=== PATIENT | male | born 1950 | race Caucasian/White ===

== ENCOUNTER 2019-01-09 18:40 | Emergency (ER) | payer BC, MEDICARE ==
[~2019-01-09] VITALS: Ht 172.7 cm; Wt 113.4 kg
[~2019-01-09 18:40] MED LIST: ADVAIR 500-501 EACH INH; ADVIL200 M1 PO; ALBUTEROL2.5 MG/3 M INH; ATIVAN0.5 MG PO; BUPRENORPHINE HC8 MG SL; BYSTOLIC10 MG PO; CLONIDINE HCL0.1 MG PO; DULERA 100 MCG/13 GM INH; DULERA 200 MCG/13 GM INH; GABAPENTIN600 MG PO; LAMICTAL100 MG PO; LISINOPRIL40 MG PO; LORAZEPAM1 MG PO; MAG-AL LIQUID30 ML PO; MELADOX3 MG PO; NORVASC10 MG PO; PREDNISONE20 MG PO; PRILOSEC20 MG PO; TESTOSTERO200 MG/1 M IM; TYLENOL325 MG PO; VITAMIN D5000 UNIT PO; ZANTAC150 MG PO
--- OUTSIDE RECORDS SUMMARY | 2019-01-09 18:44 | XMS ---
PreManage Notification: JAMAAL MICHELE Security Society Editor Events No recent Security Events currently on file CRITERIA MET - [facility] CARE PROVIDERS Abrahan Trejo Current PHONE: Unknown Pat has no Care Guidelines for this patient. [facility] VISIT COUNT (12 MO.) 1 RACQUEL Bee TOTAL 1 NOTE: Visits indicate total known visits. ED/UCC VISIT TRACKING (12 MO.) 01/09/2019 18:[address] [facility] [address] [facility] TYPE: Emergency COMPLAINT: - SORE THROAT/WHEEZING INPATIENT VISIT TRACKING (12 MO.) 01/18/2018 09:40 [facility] Lala CHANG TYPE: Surgical Services DIAGNOSES: - right-sided sciatica (M54.41, G89.29) - Kyphoscoliosis (M41.9), Spondylolisthesis of lumbar region (M43.16), Acquired flat back syndrome (M40.30), Spinal stenosis, lumbar region, without neurogenic claudication (M48.06), Lumbar radiculopathy (M54.16), Chronic right-sided low back pain with - Arthrodesis status [id number]
[2019-01-09] MEDS ORDERED: VENTOLIN HFA18 GM INH (18:56)
[2019-01-09] MEDS ORDERED: HYDROCHLOROTHIA50 MG PO (18:56)
[2019-01-09] MEDS ORDERED: SYMBICORT 16010.2 GM INH (18:56)
[2019-01-09] MEDS ORDERED: LYRICA150 MG PO (18:58)
[2019-01-09] MEDS ORDERED: CANDESARTAN CILE4 MG PO (18:58)
[2019-01-09] MEDS ORDERED: POTASSIUM CHLO10 ME1 PO (18:58)
[2019-01-09] MEDS ORDERED: LAMOTRIGINE150 MG PO (18:58)
[2019-01-09] MEDS ORDERED: TAMSULOSIN HCL0.4 MG PO (18:58)
[2019-01-09] MEDS ORDERED: FOLTANX RF CAP1 EACH PO (19:01)
== END 2019-01-09 20:15 | disposition home or self-care (01) ==
LOC: ED 18:40
DX: K21.9 Gastro-esophageal reflux disease without esophagitis (principal); I10 Essential (primary) hypertension; F31.9 Bipolar disorder, unspecified; J45.909 Unspecified asthma, uncomplicated; Z87.891 Personal history of nicotine dependence; Z88.8 Allergy status to other drugs, medicaments and biological substances; Z88.0 Allergy status to penicillin; Z88.1 Allergy status to other antibiotic agents; Z79.899 Other long term (current) drug therapy
CPT/HCPCS: 94640; 99282

== ENCOUNTER 2019-01-26 12:45 | Emergency (ER) | payer BC ==
[~2019-01-26] VITALS: Ht 172.7 cm; Wt 113.4 kg
[~2019-01-26 12:45] MED LIST changes: +CANDESARTAN CILE4 MG PO; +FOLTANX RF CAP1 EACH PO; +HYDROCHLOROTHIA50 MG PO; +LAMOTRIGINE150 MG PO; +LYRICA150 MG PO; +POTASSIUM CHLO10 ME1 PO; +SYMBICORT 16010.2 GM INH; +TAMSULOSIN HCL0.4 MG PO; +VENTOLIN HFA18 GM INH
--- OUTSIDE RECORDS SUMMARY | 2019-01-26 12:48 | XMS ---
PreManage Notification: JAMAAL MICHELE Security Herpetologist Events No recent Security Events currently on file CRITERIA MET - [facility] - Has Care Guidelines - PDMP - [facility] - 2 Visits in 30 Days CARE PROVIDERS JODIE ANTON Hospitalist 01/10/2019-Current PHONE: Unknown Abrahan Trejo MD PHONE: Unknown Pat has no Care Guidelines for this patient. Care History Medical/Surgical 01/10/2019 [facility] - Patient is currently established with [facility]. If patient is seen in the ED during business hours. Please contact CHWs at [facility]. Care Recommendation: This patient has had 5 or more Emergency Department visits in the last 12 months.\T\nbsp; Patient requires education on the scope and purpose of the ED as an acute care provider not a Primary Care Provider and should not be utilized for chronic conditions.\T\nbsp; These are guidelines and the provider should exercise clinical judgment when providing care. E.D. VISIT COUNT (12 MO.) [address] [facility] TOTAL 2 NOTE: Visits indicate total known visits. 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
[2019-01-26] MEDS ORDERED: IBUPROFEN400 MG PO (13:03)
[2019-01-26] MEDS ORDERED: PROTONIX40 MG PO (13:04)
[2019-01-26] MEDS ORDERED: VITAMIN D310000 UNI1 PO (13:04)
== END 2019-01-26 15:58 | disposition short-term general hospital (02) ==
LOC: ED 12:45
DX: R06.00 Dyspnea, unspecified (principal); R09.02 Hypoxemia; I10 Essential (primary) hypertension; J45.909 Unspecified asthma, uncomplicated; F31.9 Bipolar disorder, unspecified; Z87.891 Personal history of nicotine dependence; Z90.49 Acquired absence of other specified parts of digestive tract; Z88.1 Allergy status to other antibiotic agents; Z88.8 Allergy status to other drugs, medicaments and biological substances; Z88.2 Allergy status to sulfonamides; Z88.4 Allergy status to anesthetic agent; Z79.899 Other long term (current) drug therapy
CPT/HCPCS: 71045; 80053; 83880; 85025; 94640; 94761; 96374; 99285-25; J2930

== ENCOUNTER 2019-02-22 06:01 | Emergency (ER) | payer BC ==
[~2019-02-22] VITALS: Ht 172.7 cm; Wt 113.4 kg
[~2019-02-22 06:01] MED LIST changes: +IBUPROFEN400 MG PO; +PROTONIX40 MG PO; +VITAMIN D310000 UNI1 PO
--- OUTSIDE RECORDS SUMMARY | 2019-02-22 06:04 | XMS ---
PreManage Notification: JAMAAL MICHELE Security Radiation Control Health Physicist Events No recent Security Events currently on file CRITERIA MET - [facility] - Has Care Guidelines - PDMP - [facility] - 2 Visits in 30 Days CARE PROVIDERS JODIE ANTON Hospitalist 01/10/2019-Current PHONE: Unknown Abrahan Trejo MD PHONE: Unknown Pat has no Care Guidelines for this patient. Care History Medical/Surgical 01/10/2019 [facility] - Patient is currently established with [facility]. If patient is seen in the ED during business hours. Please contact CHWs at [facility]. Care Recommendation: This patient has had 5 [...] providing care. E.D. VISIT COUNT (12 MO.) 1 [facility] 3 RACQUEL Bee TOTAL 4 NOTE: Visits indicate total known visits. ED/UCC VISIT TRACKING (12 MO.) 02/22/2019 06:01 [facility] [place] TYPE: Emergency COMPLAINT: - TROUBLE BREATHING 01/26/2019 17:32 [facility] TYPE: Emergency DIAGNOSES: - Shortness of Breath 01/26/2019 12:46 [facility] [place] TYPE: Emergency COMPLAINT: - SOB DIAGNOSES: - Allergy status to anesthetic agent status - Dyspnea, unspecified - Allergy status to other drugs, medicaments and biological substances status - Allergy status to sulfonamides status - Shortness of breath - Hypoxemia - Other care home (current) drug therapy - Bipolar disorder, unspecified - Allergy status to other antibiotic agents status - Unspecified asthma, uncomplicated - Acquired absence of other specified parts of digestive tract - Personal history of nicotine dependence - Essential (primary) hypertension 01/09/2019 18:41 [facility] [place] TYPE: Emergency COMPLAINT: - SORE THROAT/WHEEZING DIAGNOSES: - Unspecified asthma, uncomplicated - Shortness of breath - Allergy status to other antibiotic agents status - Other care home (current) drug therapy - Gastro-esophageal reflux disease without esophagitis - Personal history of nicotine dependence - Allergy status to other drugs, medicaments and biological substances status - Allergy status to penicillin - Bipolar disorder, unspecified - Essential (primary) hypertension INPATIENT VISIT TRACKING (12 MO.) 01/26/2019 17:32 [facility] DIAGNOSES: - Shortness of Breath - Moderate persistent asthma with (acute) exacerbation - Chronic obstructive pulmonary disease with (acute) exacerbation [id number]
[2019-02-22] MEDS ORDERED: PREDNISONE10 MG PO (09:49)
[2019-02-22] MEDS ORDERED: ALBUTEROL2.5 MG/3 M INH (09:49)
--- NOTE | 2019-02-23 07:57 | EKG ---
[facility] [address] [facility] [place] [address] Signed Normal sinus rhythm Normal ECG No previous ECGs available Confirmed by SHANICE BAUMANN MD ([id number]) on 02/23/2019 7:57:52 AM Electronically Signed By: SHANICE BAUMANN MD 02/23/19 0757 PATIENT NAME: JAMAAL MICHELE MARIAA Electrocardiogram DATE OF : 52 PHYSICIAN: SHANICE BAUMANN MD REPORT #: [id number] REPORT IS CONFIDENTIAL AND NOT TO BE RELEASED WITHOUT AUTHORIZATION
== END 2019-02-22 10:06 | disposition home or self-care (01) ==
LOC: ED 06:01
DX: J45.901 Unspecified asthma with (acute) exacerbation (principal); I10 Essential (primary) hypertension; F31.9 Bipolar disorder, unspecified; Z87.891 Personal history of nicotine dependence; Z88.8 Allergy status to other drugs, medicaments and biological substances; Z88.0 Allergy status to penicillin; Z88.1 Allergy status to other antibiotic agents; Z88.2 Allergy status to sulfonamides; Z79.899 Other long term (current) drug therapy
CPT/HCPCS: 71045; 80053; 83735; 83880; 84484; 85025; 93005; 93010; 94640; 96374; 99285-25; J2930

== ENCOUNTER 2019-05-05 12:28 | Emergency (ER) | payer BC ==
[~2019-05-05] VITALS: Ht 172.7 cm; Wt 114.2 kg
[~2019-05-05 12:28] MED LIST changes: +DOXAZOSIN MESYLA1 MG PO; +FUROSEMIDE20 MG PO; +IPRAT-ALBUT 0.5-3 ML INH; +OMEPRAZOLE20 MG PO; +PREDNISONE10 MG PO; +S2 RACEPINEPHR1 EACH NEB; +SUCRALFATE1 GM PO
--- OUTSIDE RECORDS SUMMARY | 2019-05-05 12:30 | XMS ---
PreManage Notification: JAMAAL MICHELE Security Linoleum Mechanic Events No recent Security Events currently on file CRITERIA MET - 6 ED Visits in 6 Months - [facility] - Has Care Guidelines - PDMP - [facility] - 2 Visits in 30 Days CARE PROVIDERS JODIE ANTON Internal Medicine 01/10/2019-Current PHONE: Unknown Abrahan Trejo [place] PHONE: Unknown Pat has no Care Guidelines for this patient. Care History Medical/Surgical 01/10/2019 [facility] - Patient is currently established with [facility]. If patient is seen in the ED during business hours. Please contact CHWs at [facility]. Care Recommendation: This patient has had 5 [...] care. E.D. VISIT COUNT (12 MO.) 1 [place] [address] RACQUEL Bee TOTAL 8 NOTE: Visits indicate total known visits. ED/UCC VISIT TRACKING (12 MO.) 05/05/2019 12:29 [facility] [place] TYPE: Emergency COMPLAINT: - SOB 04/13/2019 14:40 [facility] [place] TYPE: Emergency COMPLAINT: - SOB DIAGNOSES: - Allergy status to other antibiotic agents status - Dyspnea, unspecified - Personal history of nicotine dependence - Allergy status to sulfonamides status - Allergy status to other drugs, medicaments and biological substances status - Shortness of breath - Hypoxemia - Essential (primary) hypertension - Allergy status to anesthetic agent status - Allergy status to penicillin 04/10/2019 10:04 [facility] [place] TYPE: Emergency COMPLAINT: - TROUBLE BREATHING DIAGNOSES: - Unspecified asthma, uncomplicated - Bipolar disorder, unspecified - Personal history of nicotine dependence - Other longterm (current) drug therapy - Allergy status to anesthetic agent status - Allergy status to other drugs, medicaments and biological substances status - Allergy status to penicillin - Shortness of breath - Allergy status to sulfonamides status - Chronic obstructive pulmonary disease with (acute) exacerbation - Allergy status to other antibiotic agents status - Essential (primary) hypertension 03/19/2019 18:35 [facility] [place] TYPE: Emergency COMPLAINT: - BREATHING ISSUES 02/22/2019 06:01 [facility] [place] TYPE: Emergency COMPLAINT: - TROUBLE BREATHING DIAGNOSES: - Unspecified asthma with (acute) exacerbation - Allergy status to penicillin - Other ad terminal makeup operator (current) drug therapy - Allergy status to sulfonamides status - Allergy status to other drugs, medicaments and biological substances status - Personal history of nicotine dependence - Allergy status to other antibiotic agents status - Essential (primary) hypertension - Shortness of breath - Bipolar disorder, unspecified 01/26/2019 17:32 [facility] TYPE: Emergency DIAGNOSES: - Shortness of Breath 01/26/2019 12:46 [facility] TYPE: Emergency COMPLAINT: - SOB DIAGNOSES: - Allergy status to anesthetic agent status - Dyspnea, unspecified - Allergy status to other drugs, medicaments and biological substances status - Allergy status to sulfonamides status - Shortness of breath - Hypoxemia - Other longterm (current) drug therapy - Bipolar disorder, unspecified [...] to other antibiotic agents status - Other ad terminal makeup operator (current) drug therapy - Gastro-esophageal reflux disease without esophagitis - Personal history of nicotine dependence - Allergy status to other drugs, medicaments and biological substances status - Allergy status to penicillin - Bipolar disorder, unspecified - Essential (primary) hypertension INPATIENT VISIT TRACKING (12 MO.) 04/13/2019 21:03 [facility] TYPE: General Medicine DIAGNOSES: - Severe persistent asthma with (acute) exacerbation - Acute Respiratory Failure 03/19/2019 18:36 RACQUEL Oswald TYPE: Observation COMPLAINT: - REFLUX LARINGITIS W/ LARINGOSPASMS DIAGNOSES: - Personal history of nicotine dependence - Chronic pain syndrome - nursing home (current) use of inhaled steroids - Unspecified asthma, uncomplicated - Benign prostatic hyperplasia without lower urinary tract symptoms - Other ad terminal makeup operator (current) drug therapy - Bipolar disorder, unspecified - nursing home (current) use of systemic steroids - Allergy status to other drugs, medicaments and biological substances status - Obstructive sleep apnea (adult) (pediatric) - Acute laryngitis - Shortness of breath - Essential (primary) hypertension - Edema, unspecified - Allergy status to other antibiotic agents status - Allergy status to sulfonamides status - Gastro-esophageal reflux disease without esophagitis - Allergy status to anesthetic agent status 01/26/2019 17:32 [facility] Lala CHANG TYPE: General Medicine DIAGNOSES: - Shortness of Breath - Moderate persistent asthma with (acute) exacerbation - Chronic obstructive pulmonary disease with (acute) exacerbation [id number]
[2019-05-05] MEDS ORDERED: SPIRIVA18 MCG INH (12:38)
[2019-05-05] MEDS ORDERED: PREDNISONE20 MG PO (15:01)
== END 2019-05-05 15:15 | disposition home or self-care (01) ==
LOC: ED 12:28
DX: J44.1 Chronic obstructive pulmonary disease with (acute) exacerbation (principal); I10 Essential (primary) hypertension; F31.9 Bipolar disorder, unspecified; J45.909 Unspecified asthma, uncomplicated; Z87.891 Personal history of nicotine dependence; Z88.0 Allergy status to penicillin; Z88.1 Allergy status to other antibiotic agents; Z88.2 Allergy status to sulfonamides; Z79.899 Other long term (current) drug therapy
CPT/HCPCS: 71045; 80053; 83880; 84484; 85025; 94640; 96374; 99285-25; J2930

== ENCOUNTER 2020-09-12 15:15 | Emergency (ER) | payer BC ==
[~2020-09-12] VITALS: Ht 172.7 cm; Wt 111.1 kg
[~2020-09-12 15:15] MED LIST changes: +SPIRIVA18 MCG INH
--- OUTSIDE RECORDS SUMMARY | 2020-09-12 15:18 | XMS ---
PreManage Notification: JAMAAL MICHELE Security Medical Officer Events No recent Security Events currently on file CRITERIA MET - [facility] CARE PROVIDERS JODIE ANTON Internal Medicine 01/10/2019-Current PHONE: Unknown Pat has no Care Guidelines for this patient. Care History Medical/Surgical 01/10/2019 [facility] - Patient is currently established with [facility]. If patient is seen in the ED during business hours. Please contact CHWs at [facility]. Care Recommendation: This patient has [...] care. E.D. VISIT COUNT (12 MO.) 1 [facility] TOTAL 1 NOTE: Visits indicate total known visits. ED/UCC VISIT TRACKING (12 MO.) 09/12/2020 15:15 [facility] [place] TYPE: Emergency COMPLAINT: - SOB, LEG PAIN/SWELLING INPATIENT VISIT TRACKING (12 MO.) No inpatient visits to display in this time frame [id number]
[2020-09-12] MEDS ORDERED: FUROSEMIDE40 MG PO (15:42)
[2020-09-12] MEDS ORDERED: KLOR-CON 1010 MEQ PO (15:43)
[2020-09-12] MEDS ORDERED: PREDNISONE5 MG (15:43)
[2020-09-12] MEDS ORDERED: AZASAN100 MG PO (15:50)
--- NOTE | 2020-09-12 19:30 | EKG ---
[facility] [address] [facility] [place], [place] [address] Signed Normal sinus rhythm Normal ECG When compared with ECG of 13-APR-2019 14:54, No significant change was found Confirmed by POWER CHAVEZ DO ([id number]) on 09/12/2020 7:29:53 PM Electronically Signed By: POWER CHAVEZ DO 09/12/201929 PATIENT NAME: LENYJAMAAL MARIAA Electrocardiogram DATE OF : 52 PHYSICIAN: POWER CHAVEZ DO REPORT #: [id number] REPORT IS CONFIDENTIAL AND NOT TO BE RELEASED WITHOUT AUTHORIZATION
== END 2020-09-12 19:41 | disposition home or self-care (01) ==
LOC: ED 15:15
DX: J98.01 Acute bronchospasm (principal); I10 Essential (primary) hypertension; Z20.828 Contact with and (suspected) exposure to other viral communicable diseases; G47.30 Sleep apnea, unspecified; Z88.8 Allergy status to other drugs, medicaments and biological substances; Z88.0 Allergy status to penicillin; Z88.2 Allergy status to sulfonamides; Z88.1 Allergy status to other antibiotic agents; Z79.899 Other long term (current) drug therapy
CPT/HCPCS: 71045; 80053; 83735; 83880; 84484; 85025; 93005; 93010; 94640; 96374; 99285-25; C9803; J1940; J7512; U0003

== ENCOUNTER 2021-05-15 10:55 | Day surgery (SDC) | payer BC ==
[~2021-05-15] VITALS: Ht 172.7 cm; Wt 120.0 kg
[~2021-05-15 10:55] MED LIST changes: +AZASAN100 MG PO; +FUROSEMIDE40 MG PO; +KLOR-CON 1010 MEQ PO; +LITHIUM CARBON300 M2 PO; +PREDNISONE5 MG; +STOOL SOFTENER100 MG PO
--- NOTE | 2021-05-15 12:34 | NUR ---
SITTING IN CHAIR AT BS WITH BED UNCOMFORTABLE.
--- NOTE | 2021-05-15 15:13 | NUR ---
05/15/21 Henri3 Nayana Lazaro 1504- PT ARRIVES TO PACU EASILY AROUSABLE TO STIMULI. PT REPORTS NO PAIN OR NAUSEA. RESP EVEN AND UNLABORED. OXYGEN SAT MID TO HIGH 90'S ON RA.
--- NOTE | 2021-05-16 12:36 | PATH ---
[facility] [address] [facility] [place] [address] Signed SPECIMEN(S): A ILEOCECAL VALVE BIOPSY SPECIMEN SOURCE: A. ILEOCECAL VALVE BIOPSY CLINICAL HISTORY: Colonoscopy. Abdominal pain, positive Cologuard. Postop: Polyp x 1. MICROSCOPIC DESCRIPTION: Histologic sections of all submitted blocks are examined by light microscopy. These findings, together with the gross examination, support the pathologic diagnosis. FINAL PATHOLOGIC DIAGNOSIS: Colon, ileocecal valve, biopsy: - Colonic mucosa with focal hemorrhage. - Negative for active, chronic, or microscopic colitis. - Negative for dysplasia or malignancy. COMMENT: Sections demonstrate a fragment of colonic mucosa with focal lamina propria hemorrhage. There are no signs of ischemic injury, such as lamina propria hyalinization, crypt dropout, or surface mucosal injury. The findings are nonspecific but could be secondary to biopsy procedure. NAL:cml:C2NR GROSS DESCRIPTION: The specimen, labeled "SP, 1," and designated on the requisition "ileocecal valve," is received in formalin and consists of one anderson soft tissue fragment that measures 0.3 cm in greatest dimension. The specimen is entirely submitted in cassette (A1). AT (under the direct supervision of a pathologist) The Gross Description was prepared using a voice recognition system. The report was reviewed for accuracy; however, sound-alike word errors, addition and/or deletions may occur. If there is any question about this report, please contact Client Services. PERFORMING LABORATORY: The technical component was performed by [email or web address], [address] [place] [id number] (Nanotechnology Engineering Technician: Tressa Dudley MD; CLIA# [id number]). Professional [email or web address] PATIENT NAME: JAMAAL MICHELE PATHOLOGY DATE OF : 52 REPORT #: [id number] PHYSICIAN: NATY SOMMER PCP: JODIE ANTON MD REPORT IS CONFIDENTIAL AND NOT TO BE RELEASED WITHOUT AUTHORIZATION [facility] [address] [place], [place] [address] [address] (CLIA# [id number]). Diagnostician: Liliam Andre MD Pathologist Electronically Signed 05/16/2021 Copies: ~ PATIENT NAME: JAMAAL MICHELE PATHOLOGY DATE OF : 52 REPORT #: [id number] PHYSICIAN: NATY PATHOLOGY PCP: JODIE ANTON MD REPORT IS CONFIDENTIAL AND NOT TO BE RELEASED WITHOUT AUTHORIZATION
--- NOTE | 2021-05-20 06:23 | OR ---
[facility] [address] [place], [place] [address] Signed DATE OF OPERATION: 05/15/2021 SURGEON: Smooth Staton MD PREOPERATIVE DIAGNOSIS: Positive Cologuard test without other symptoms. POSTOPERATIVE DIAGNOSES: 1. Polyp at 40 cm, excised (cold snare). 2. Mild inflammation of the ileocecal valve. PROCEDURE: Total colonoscopy to cecum with biopsy of ileocecal valve and cold snare polypectomy x1 (note, unable to retrieve specimen for pathology). 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 He has had polyps in the past. He underwent a Cologuard test under the direction of Dr. Martel in part related to the current pandemic. He has symptoms of constipation that is longstanding. He has had no rectal bleeding and has no known family history of colon cancer. He is admitted at this time to undergo colonoscopy on the basis of the positive Cologuard test. He understands the risks of bleeding, infection, and perforation. As he does have numerous medical problems and is on buprenorphine chronically, propofol infusional technique is recommended. FINDINGS: The prep was adequate but certainly not great. There was no solid stool, but a fair amount of irrigation was required for good visualization of the mucosa. There was mild inflammatory change of the ileocecal valve, which was biopsied. At 40 cm, there was a small sessile polyp, this was excised with cold snare technique without problem, but the polyp could not be retrieved due to excessive spasm of the colon, underlying prep issues and so on. Multiple attempts were made to retrieve it, but it was not possible. It did appear to be adenomatous, but did not appear to be worrisome otherwise. DESCRIPTION OF PROCEDURE: The patient was brought to the endoscopy suite and placed in the lateral decubitus Electronically Signed By: SMOOTH STATON MD 05/16/21 1004 Electronically Signed By: SMOOTH STATON MD 05/20/21 1909 PATIENT NAME: JAMAAL MICHELE OPERATIVE REPORT DATE OF : 52 REPORT #: [id number] PHYSICIAN: SMOOTH STATON MD PCP: REGGIE MARTEL MD REPORT IS CONFIDENTIAL AND NOT TO BE RELEASED WITHOUT AUTHORIZATION [facility] [address] [place], [place] [address] Signed position, given intravenous sedation to the point of slurred speech and nystagmus. Digital rectal examination showed poor rectal tone. An Olympus video colonoscope was passed in the rectum and manipulated throughout the colon ultimately intubating the cecum itself. The ileocecal valve appeared to be mildly inflamed. Biopsies were obtained. Irrigation was undertaken. The scope was carefully withdrawn. Examination showed no sign of abnormality until approximately 40 cm. A sessile polyp was noted, photographs were taken. Using cold snare technique, the polyp was excised. Attempts to grasp the polyp for retrieval, which normally would be easy was rather challenging on the basis of the patient's colonic spasm. Adequate but not great bowel prep and difficulty of the patient to retain air while air was in the left colon due to poor muscle tone of the anorectum. Despite efforts to retrieve or find, the polyp could not be found. A trap had been placed in line of the colonoscope, but that too was unrevealing as to the specimen. The scope was further withdrawn and the remaining colon was normal. He was taken to the recovery room in good condition. CONCLUDING DIAGNOSIS: Polyp x1, likely accounting for Cologuard test. PLAN: Recommend repeat colonoscopy in 3 years, sooner if clinically indicated. MD JAVED Pollard/MERYLL /[id number] cc: Reggie Martel MD Copies: REGGIE MARTEL MD ~ Electronically Signed By: SMOOTH STATON MD 05/16/21 1004 Electronically Signed By: SMOOTH STATON MD 05/20/21 1909 PATIENT NAME: JAMAAL MICHELE OPERATIVE REPORT DATE OF : 52 REPORT #: [id number] PHYSICIAN: SMOOTH STATON MD PCP: REGGIE MARTEL MD REPORT IS CONFIDENTIAL AND NOT TO BE RELEASED WITHOUT AUTHORIZATION
== END 2021-05-15 15:45 | disposition home or self-care (01) ==
LOC: DS 10:55 → OPS 10:55 → DS 11:00 → OPS 12:00
PROVIDERS: ATTEND Surgery
PROC: 0DBC8ZX Excision of Ileocecal Valve, Via Natural or Artificial Opening Endoscopic, Diagnostic (ICD-10-PCS; principal; 2021-05-15 12:00)
DX: K63.5 Polyp of colon (principal); K58.1 Irritable bowel syndrome with constipation; J45.909 Unspecified asthma, uncomplicated; E11.9 Type 2 diabetes mellitus without complications; K21.9 Gastro-esophageal reflux disease without esophagitis; I10 Essential (primary) hypertension; E66.01 Morbid (severe) obesity due to excess calories; G89.29 Other chronic pain; M54.5 Low back pain; F11.21 Opioid dependence, in remission; Z90.49 Acquired absence of other specified parts of digestive tract; Z79.52 Long term (current) use of systemic steroids; Z79.899 Other long term (current) drug therapy; Z88.1 Allergy status to other antibiotic agents; Z88.0 Allergy status to penicillin; Z88.2 Allergy status to sulfonamides; Z88.8 Allergy status to other drugs, medicaments and biological substances; Z68.37 Body mass index [BMI] 37.0-37.9, adult
CPT/HCPCS: J2704; J7121